=== PATIENT | male | born 2005 | race Hispanic/Latino ===

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

== ENCOUNTER 2023-08-04 18:43 | Emergency (ER) | payer MEDICAID ==
[~2023-08-04 18:43] MED LIST: ACET-66 PO; BROM118S48 PO; IBUP-2070 PO; MAGIC240 MM
== END 2023-08-04 18:54 | disposition left against medical advice (07) ==
LOC: EDH 18:43
DX: R11.2 Nausea with vomiting, unspecified (principal); R51.9 Headache, unspecified; Z53.21 Procedure and treatment not carried out due to patient leaving prior to being seen by health care provider